=== PATIENT | female | born 1960 | race Caucasian/White ===

== ENCOUNTER 2016-09-04 09:10 | Emergency (ER) | payer OTHER ==
[~2016-09-04] VITALS: Ht 157.5 cm; Wt 60.2 kg
[2016-09-04 09:56] LABS: ADD MIUA? YES; BILIRUBIN NEGATIVE; BLOOD LARGE; COLOR LT.RED ((YELLOW)); GLUCOSE (STRIP) NEGATIVE; KETONES NEGATIVE; LEUKOCYTES MODERATE; NITRITE NEGATIVE; PH, URINE 6.5 (5-8); PROTEIN (STRIP) 100; UROBILINOGEN 0.2 MG/DL (0.2-1.0)
[2016-09-04 10:01] LABS: HEMATOCRIT 45.7 % (36.0-46.0); MCH 28.7 PG (29.0-34.0); MCHC 33.3 G/DL (30.0-36.0); MCV 86.2 FL (83-99); MEAN PLAT.VOLUME 10.1 uM^3 (9.5-12.4); PLATELET COUNT 226 K/uL (156-360); RBC DIS.WIDTH-CV 12.4 % (11.8-14.6); RBC DIS.WIDTH-SD 39.5 % (39-53); WHITE BLOOD COUNT 5.3 K/uL (4.1-10.2)
[2016-09-04 10:06] LABS: RED BLOOD CELLS TNTC /HPF (0-5)
[2016-09-04 10:07] LABS: BACTERIA 2+ /HPF; EPITHELIAL CELLS 1+ /HPF; MUCUS 1+ /LPF; UCUL ADDED? YES
[2016-09-04 10:15] LABS: CHLORIDE 104 mEq/L (99-109); SODIUM 141 mEq/L (136-147)
[2016-09-04 10:17] LABS: GLUCOSE 96 mg/dL (70-99)
[2016-09-04 10:18] LABS: ANION GAP 9 MEQ/L (2-14)
[2016-09-04 10:19] LABS: TOTAL BILIRUBIN 0.6 mg/dL (0.0-1.0)
[2016-09-04 10:21] LABS: ALKALINE PHOSPHATASE 80 IU/L (3-129); GFR ESTIMATE (CALCULATED) > 59 mL/min/
[2016-09-04 10:22] LABS: UREA NITROGEN (BUN) 10 mg/dL (9-23)
[2016-09-04 10:30] LABS: QUANTITATIVE HCG 4.3 MIU/ML
[2016-09-04] MEDS ORDERED: FLOMAX0.4 MG PO (12:05)
[2016-09-04] MEDS ORDERED: KEFLEX500 MG PO (12:05)
[2016-09-04] MEDS ORDERED: PERCOCET 5/31 TABLET PO (12:05)
[2016-09-04 12:28] VITALS: BP 121/66
[2016-09-07] MEDS ORDERED: LISINOPRIL20 MG PO (10:57)
[2016-09-07] MEDS ORDERED: FISH OIL 1,0001 EAC7 PO (10:58)
[2016-09-07] MEDS ORDERED: IRON325 M1 PO (10:58)
[2016-09-07] MEDS ORDERED: DAILY MULTIPLE1 EACH PO (10:58)
== END 2016-09-04 12:28 | disposition home or self-care (01) ==
LOC: EME 09:10
DX: N13.6 Pyonephrosis (principal); N39.0 Urinary tract infection, site not specified; N28.89 Other specified disorders of kidney and ureter; I10 Essential (primary) hypertension
CPT/HCPCS: 74177; 80053; 81003; 84702; 85027; 87086; 99281; 99285; J0696; J2405; J3010; J7030; J7050

== ENCOUNTER 2016-09-08 11:08 | Day surgery (SDC) | payer OTHER ==
[~2016-09-08] VITALS: Ht 157.5 cm; Wt 59.0 kg
[~2016-09-08 11:08] MED LIST: DAILY MULTIPLE1 EACH PO; FISH OIL 1,0001 EAC7 PO; FLOMAX0.4 MG PO; IRON325 M1 PO; KEFLEX500 MG PO; LISINOPRIL20 MG PO; PERCOCET 5/31 TABLET PO
[2016-09-08 11:44] VITALS: BP 123/78
== END 2016-09-08 12:15 | disposition home or self-care (01) ==
LOC: SDC 11:08
PROC: 0TJ9XZZ Inspection of Ureter, External Approach (ICD-10-PCS; principal; 2016-09-08)
DX: N20.1 Calculus of ureter (principal); I10 Essential (primary) hypertension; Z53.8 Procedure and treatment not carried out for other reasons
CPT/HCPCS: 93005; J0131; J0690; J1885; J2250; J3010